=== PATIENT | male | born 1950 | race American Indian/Alaskan Native ===

== ENCOUNTER 2016-10-26 10:25 | Day surgery (SDC) | payer MEDICARE ==
[2016-10-26] MEDS ORDERED: NACL 0.9% 1000 ML 1,000 ML IV SCH (11:00)
--- NOTE | 2016-10-26 12:52 | Anesthesia Consultation ---
Anesthesia Consult and Med Hx Date of service: 10/26/16 - Airway Anesthetic Teeth Evaluation: Dentures ROM Head & Neck: Adequate Mental/Hyoid Distance: Adequate Mallampati Class: Class II Intubation Access Assessment: Probably Good - Pulmonary Exam CTA: Yes - Cardiac Exam Cardiac Exam: RRR - Pre-Operative Health Status ASA Pre-Surgery Classification: ASA3 Proposed Anesthetic Plan: MAC - Pulmonary Hx Smoking: Yes Hx Sleep Apnea: No (DEBORAH PRE SCREEN HIGH RISK) - Cardiovascular System Hx Hypertension: Yes Hx Heart Attack/AMI: Yes - Other Systems Hx Cancer: No
--- NOTE | 2016-10-26 12:52 | Anesthesia Day of Surgery ---
Anesthesia Day of Surgery - Day of Surgery Patient Examined: Yes Patient H&P Reviewed: Yes Patient is NPO: Yes
[2016-10-26] MEDS ORDERED: DIPRIVAN 10 MG/ML IV ONE ×3 (12:58→13:32)
--- NOTE | 2016-10-26 14:24 | Post Operative Note ---
Pre-op diagnosis: Colon polyps Post-op diagnosis: same Findings: 1) 1 cm sessile polyp of distal transverse colon 2) 1.5 cm pedunculated polyp at 35 cm Procedure: Colonoscopy to mid-ascending colon with snare polypectomy of distal transverse polyp and snare polypectomy of polyp at 35 cm Anesthesia: MAC Surgeon: VISHAL UGARTE Estimated blood loss: none Pathology: list (Polyp of distal transverse colon and polyp at 35 cm) Specimen disposition: to lab Condition: stable Disposition: PACU
--- NOTE | 2016-10-26 14:37 | Post Anesthesia Evaluation ---
- Post Anesthesia Evaluation Patient Participated: Yes Airway Patent: Yes Stable Respiratory Function: Yes Nausea/Vomiting: No Temp > 96.8F: Yes Pain Manageable: Yes Adequeate Hydration: Yes Anesthesia Complications: No Block Receding Appropriately: Not Applicable Patient on Ventilator: No
[2016-10-26 14:57] VITALS: BP 175/78
--- NOTE | 2016-10-30 15:18 | Operative Report ---
Operative Report Operative Report: Date of operation: 10/26/2016 Preoperative diagnosis: History of colonic polyps Postoperative diagnosis: 1) large sessile polyp of the mid ascending colon 2) 1 cm sessile polyp of the distal transverse colon 3) 1.5 cm pedunculated polyp at 35 cm Procedure: Colonoscopy to the mid ascending colon with snare polypectomy of the above polyps Surgeon: Raza Carrera M.D. Findings: As above Anesthesia: MAC EBL: Minimal There were no complications, drains or cultures. Specimens consisted of the above polyps Description of procedure: The patient was placed in the left lateral decubitus position. He was then sedated intravenously by anesthesia. Colonoscope was inserted into the patient's rectum and was advanced retrograde while directly visualizing his colonic lumen. The prep was adequate. Once the mid ascending colon was reached and the previously noted mass identified, the scope was slowly withdrawn with careful circumferential visualization of the colonic mucosa. The above noted polyps were noted, photo documented and removed using the snare and electrocautery. All tissue was retrieved for histopathologic examination. The remainder of the examination including a retroflexed view of his distal rectum was unrevealing. Insufflated air was aspirated from his rectum and scope withdrawn. Patient tolerated the procedure well. He was recovered in the GI suite.
== END 2016-10-26 10:26 | disposition home or self-care (01) ==
LOC: GIO 10:25
PROVIDERS: ATTEND Surgery
DX: Z09 Encounter for follow-up examination after completed treatment for conditions other than malignant neoplasm (principal); D12.4 Benign neoplasm of descending colon; D12.3 Benign neoplasm of transverse colon; K63.5 Polyp of colon; I10 Essential (primary) hypertension; F17.200 Nicotine dependence, unspecified, uncomplicated; Z87.19 Personal history of other diseases of the digestive system
CPT/HCPCS: 45385; 88305; J2704; J7030

== ENCOUNTER 2018-09-01 22:33 | Emergency (ER) | payer MEDICARE ==
[2018-09-01] MEDS ORDERED: XYLOCAINE CARDIAC IV ONE (22:35)
[2018-09-01] MEDS ORDERED: ADRENALIN ONE (22:35)
[2018-09-01] MEDS ORDERED: CORDARONE IV ONE (22:35)
[2018-09-01] MEDS ORDERED: CALCIUM CHLORIDE IV ONE (22:35)
[2018-09-01] MEDS ORDERED: NACL 0.9% 1000 ML 1,000 ML ONE (22:47)
[2018-09-01] MEDS ORDERED: NACL 0.9% 1000 ML 2,000 ML IV ONE (22:50)
--- NOTE | 2018-09-01 23:11 | Emergency Department Report ---
ED CPR HPI - General Stated Complaint: BRANDEE Time Seen by Provider: 09/01/18 22:33 Source: EMS Mode of arrival: Stretcher Limitations: Altered Mental Status, Physical Limitation - History of Present Illness Initial Comments: Patient is a 68-year-old male presents emergency room via EMS. Patient was called by EMS for confusion and shortness of breath. Upon arrival. Patient was noted to not have a pulse and not be breathing. EMS had the patient on BiPAP. Report received from EMS. MD Complaint: stopped breathing -: minute(s) Place: home Bystander CPR Performed: No AED Applied by Bystander/Family Practice Md: No Shock Advised: No Initial Findings in the Field: lethargic, good pulses, sinus rhythm ROSC in the Field: No Associated Injuries: No Associated Symptoms: shortness of breath - Related Data Home Medications Medication Instructions Recorded Confirmed Last Taken Aspirin EC [Aspirin Enteric Coated 81 mg PO QDAY 10/13/16 07/19/18 07/18/18 05:00 TAB] Losartan [Cozaar] 100 mg PO QDAY 10/13/16 07/19/18 07/18/18 05:00 Multiple Vitamin TAB (Theragran) 1 tab PO DAILY 10/26/16 07/19/18 10/30/16 PARoxetine 20 mg PO DAILY 10/26/16 07/19/18 07/18/18 05:00 amLODIPine 5 mg PO HS 10/26/16 07/19/18 07/18/18 05:00 Lisinopril 20 mg PO DAILY 07/19/18 07/19/18 07/18/18 05:00 20mg Allergies Allergy/AdvReac Type Severity Reaction Status Date / Time No Known Allergies Allergy Verified 10/13/16 15:47 ED Review of Systems ROS: Stated complaint: BRANDEE Other details as noted in HPI Comment: Unobtainable due to pts medical conditions ED Past Medical Hx - Past Medical History Previous Medical History?: Yes Hx Hypertension: Yes Hx Heart Attack/AMI: Yes Hx Renal Disease: No Hx Sickle Cell Disease: No Hx Headaches / Migraines: Yes (MIGRAINESM - NOT RECENT) Hx HIV: No - Surgical History Past Surgical History?: No - Family History Family history: no significant - Social History Smoking Status: Never Smoker Substance Use Type: None - Medications Home Medications: Home Medications Medication Instructions Recorded Confirmed Last Taken Type Aspirin EC [Aspirin Enteric Coated 81 mg PO QDAY 10/13/16 07/19/18 07/18/18 05:00 History TAB] Losartan [Cozaar] 100 mg PO QDAY 10/13/16 07/19/18 07/18/18 05:00 History Multiple Vitamin TAB (Theragran) 1 tab PO DAILY 10/26/16 07/19/18 10/30/16 History PARoxetine 20 mg PO DAILY 10/26/16 07/19/18 07/18/18 05:00 History amLODIPine 5 mg PO HS 10/26/16 07/19/18 07/18/18 05:00 History Lisinopril 20 mg PO DAILY 07/19/18 07/19/18 07/18/18 05:00 History 20mg ED Physical Exam - General Limitations: Altered Mental Status, Physical Limitation General appearance: obtunded - Head Head exam: Present: atraumatic, normocephalic - Eye Eye exam: Present: other (pupils fixed and dilated) - Neck Neck exam: Present: normal inspection - Respiratory Respiratory exam: Present: other (patient on BiPAP and not breathing.) - Cardiovascular Cardiovascular Exam: Present: other (no pulse noted) - GI/Abdominal GI/Abdominal exam: Present: soft - Rectal Rectal exam: Present: deferred - Extremities Exam Extremities exam: Present: normal inspection - Skin Skin exam: Present: warm, dry, intact, normal color. Absent: rash ED Course - Reevaluation(s) Reevaluation #1: Initial evaluation done. Upon initial evaluation patient noted to have agonal breathing and no pulse. CPR was started. Code ran in accordance with ACLS guidelines. IV started in right EJ. See procedure note. Patient intubated immediately upon arrival. See procedure notes 09/01/18 22:30 Resuscitation efforts terminated due to no signs of life. No cardiac motion on ultrasound. No pulse. No respirations. See code note. Code ran accordance with ACLS guidelines. 09/01/18 23:04 Family meeting done. Family support given. 09/01/18 23:17 Is more family arrives. Another family meeting them. Family support given 09/02/18 00:15 - EJ/Peripheral Line Neck R Time Out Performed: Yes Indications: nurses unable to establis Skin Cleansed in Sterile Fashion: Yes Size: 20 Dressing Placed: Tegaderm, tape Patient Tolerated Procedure: well, no complications - Intubation Time Out Performed: Yes Sedative: none Laryngoscope: fiberoptic video scope Size: 4 ET Tube Size: 8 Tube Secured Depth (cm): 24 Tube Secured Location: teeth Tube Placement Confirmation: visualized tube passing t, equal breath sounds bilat, no breath sounds over epi, confirmation by capnometr Patient Tolerated Procedure: well, no complications Intubation Complications: none ED Medical Decision Making - Medical Decision Making Patient is a 68-year-old male that presents emergency room via EMS in a cardiac arrest. Initial complaints per EMS was short of breath and confused. Patient was placed on BiPAP by EMS and upon initial evaluation patient found to have agonal breathing and pulseless. CPR was initiated and patient was intubated immediately. See procedure notes. Code ran in accordance with ACLS guidelines. See code note. Patient given multiple medications and shocked multiple times. Resuscitation efforts terminated due to no signs of life; Pupils were fixed and dilated no cardiac motion on ultrasound, no pulse, No respiratory motion. - Differential Diagnosis cardiac arrest Critical Care Time: Yes Critical care attestation.: If time is entered above; I have spent that time in minutes in the direct care of this critically ill patient, excluding procedure time. Critical Care Time: 35 minutes ED Disposition Clinical Impression: Cardiac arrest Disposition: DC-20 Is pt being admited?: No Does the pt Need Aspirin: No Condition: Undetermined Time of Disposition: 00:42
== END 2018-09-02 04:11 ==
LOC: ED 22:33
DX: I46.9 Cardiac arrest, cause unspecified (principal); I10 Essential (primary) hypertension; I25.2 Old myocardial infarction; G43.909 Migraine, unspecified, not intractable, without status migrainosus; Z79.899 Other long term (current) drug therapy
CPT/HCPCS: 31500; 36556; 82962; 92950; 99291; J0171; J0282; J2001; J7030